=== PATIENT | male | born 1960 | race African-American/Black ===

== ENCOUNTER 2024-07-15 10:47 | Emergency (ER) | payer MEDICAID, SELFPAY ==
[2024-07-15 11:10] VITALS: BP 128/70; PULSE 77; RESP 20; TEMP 36.4; O2SAT 100
[2024-07-15 12:42] VITALS: O2SAT 100
[2024-07-15 12:43] VITALS: BP 106/70; O2SAT 100
[2024-07-15 12:45] VITALS: O2SAT 100
[2024-07-15 12:46] VITALS: BP 108/69; PULSE 82; RESP 20; O2SAT 100
[2024-07-15 13:01] LABS: Basophils Percent Auto 0.3 % (0.2-1.2); Eosinophils Absolute Auto 0.1 K/mm3 (0-0.3); Eosinophils Percent Auto 1.6 % (0-4.4); Hemoglobin 12.7 g/dL (14.0-18.0); Immature Granulocyte Absolute 0.09 K/mm3 (0.00-0.031); Lymphocytes Absolute Auto 2.38 K/mm3 (0.9-3.2); Lymphocytes Percent Auto 26.9 % (18.3-44.2); Mean Corpuscular HGB Conc 31.8 g/dl (32-36); Mean Corpuscular Hemoglobin 24.1 pg (26-34); Mean Platelet Volume 9.8 fl (7.4-10.4); Monocytes Absolute Auto 0.8 K/mm3 (0.1-0.6); Neutrophils Absolute Auto 5.4 K/mm3 (1.3-6.7); Neutrophils Percent Auto 61.2 % (45.5-73.1); Platelet Count Result 189 k/mm3 (150-375); Red Blood Count 5.26 M/mm3 (4.6-6.20); Red Cell Distribution Width 18.2 % (11.5-14.5); White Blood Count 8.9 K/mm3 (4.5-10.0)
[2024-07-15 13:08] LABS: Add Urine Microscopic? YES; Appearance Urine Clear (Clear); Bacteria Urine None Seen /hpf; Bilirubin Urine Negative (Negative); Blood Urine Negative (Negative); Color Urine Yellow (Yellow); Glucose Urine UA 3+ mg/dL (Negative); Ketones Urine Negative (Negative); Leukocyte Esterase Ur Negative LEU/UL (Negative); Nitrate Urine Negative (Negative); Protein Urine 1+ mg/dL (Negative); RBC Urine 0-2 /hpf (0-2); Specific Grav Ur 1.017 (1.001-1.035); Squamous Epithelial Cell Urine None Seen /hpf (Few); Urobilinogen Urine 0.2 mg/dL (<2.0); WBC Urine 0-5 /hpf (0-3); pH Urine 5.5 (5.0-9.0)
[2024-07-15 13:12] LABS: Alanine Aminotransferase 20 U/L (6-50); Albumin Level 4.3 g/dL (3.5-5.1); Alkaline Phosphatase 84 U/L (38-126); Anion Gap 13 mmol/L (4-12); Aspartate Amino Transferase 25 U/L (17-59); Bilirubin,Total 1.3 mg/dL (0.2-1.3); Blood Urea Nitrogen 29 mg/dL (9-20); Calcium 9.2 mg/dL (8.4-10.2); Carbon Dioxide 19 mmol/L (22-30); Chloride 107 mmol/L (98-107); Estimated CRCL calculation 44 ml/min; Estimated Glomerular Filt Rate 34; Glucose 103 mg/dL (65-110); Potassium 3.5 mmol/L (3.4-5.0); Sodium 139 mmol/L (137-145)
--- NOTE | 2024-07-15 13:25 | ED.MALEGU ---
HPI - Male Genitourinary General Chief complaint: Urogenital-Male Stated complaint: groin pain Time Seen by Provider: 07/15/24 12:46 History of Present Illness HPI Narrative: Patient is a 63-year-old male who presents ER with suprapubic pain. Has not been able to fully urinate. He keeps going to the bathroom and only is able to really small amounts of urine. No dysuria. Has a known enlarged prostate. He does take Flomax. Recently traveled here from [place] to [place] his [place]. He is going to be returning home in 3 days. No fevers or chills or sweats. No dysuria. Related Data Allergies Allergy/AdvReac Type Severity Reaction Status Date / Time No Known Allergies Allergy Verified 07/15/24 11:13 Review of Systems Review of Systems: All systems reviewed & are unremarkable except as noted in HPI and below Constitutional: Constitutional: Reports no additional constitutional complaints Gastrointestinal: Gastrointestinal: Reports abdominal pain, Denies nausea and Denies vomiting Genitourinary: Genitourinary: Denies hematuria, Reports oliguria, Denies dysuria and Denies urinary frequency [facility] Past Medical History Medical History (Updated 07/15/24 @ 14:39 by Macho Larsen MD) BPH (benign prostatic hyperplasia) Chronic kidney disease Exam Narrative: GENERAL: Well-appearing, well-nourished, and in no acute distress. HEAD: Normocephalic, atraumatic. ENT: Mucous membranes moist. CHEST: Clear to auscultation. No respiratory distress. HEART: Regular rate and rhythm. Normal peripheral pulses. ABDOMEN: Soft, suprapubic tenderness with palpation, nondistended. EXTREMITIES: Normal range of motion. No edema. SKIN: Warm, dry, no rash. NEURO: Alert and oriented x3. PSYCH: Normal mood and affect. Course Course Emergency Course: Orozco catheter placed with 1200 mL return of urine. No infection. 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 Discharge with Orozco bag. Continue Flomax and follow up with his primary urologist. Vital Signs Vital signs: Vital Signs Temperature 97.6 F 07/15/24 11:10 Pulse Rate 77 07/15/24 11:10 Respiratory Rate 20 07/15/24 11:10 Blood Pressure 128/70 07/15/24 11:10 Pulse Oximetry 100 07/15/24 11:10 Oxygen Delivery Room Air 07/15/24 11:10 Temperature 97.6 F 07/15/24 11:10 Pulse Rate 82 07/15/24 12:46 Respiratory Rate 20 07/15/24 12:46 Blood Pressure 108/69 07/15/24 12:46 Pulse Oximetry 100 07/15/24 12:46 Oxygen Delivery Room Air 07/15/24 11:10 MDM - Male Genitourinary Lab Data 07/15/24 12:45 07/15/24 12:45 Labs: Lab Results 07/15/24 Range/Units 12:45 WBC 8.9 (4.5-10.0) K/mm3 RBC 5.26 (4.6-6.20) M/mm3 Hgb 12.7 L (14.0-18.0) g/dL Hct 40.0 L (42.0-52.0) % MCV 76.0 L (80-100) fl MCH 24.1 L (26-34) pg MCHC 31.8 L (32-36) g/dl RDW 18.2 H (11.5-14.5) % Plt Count 189 (150-375) k/mm3 MPV 9.8 (7.4-10.4) fl Immature Gran % (Auto) 1.0 H (0-0.5) % Neut % (Auto) 61.2 (45.5-73.1) % Lymph % (Auto) 26.9 (18.3-44.2) % [place] % (Auto) 9.0 H (2.6-8.5) % Eos % (Auto) 1.6 (0-4.4) % Baso % (Auto) 0.3 (0.2-1.2) % Lymph # (Auto) 2.38 (0.9-3.2) K/mm3 [place] # (Auto) 0.8 H (0.1-0.6) K/mm3 Eos # (Auto) 0.1 (0-0.3) K/mm3 Baso # (Auto) 0.0 (0.0-0.1) K/mm3 Abs Immat Gran (auto) 0.09 H (0.00-0.031) K/mm3 Absolute Neuts (auto) 5.4 (1.3-6.7) K/mm3 Absolute Nucleated RBC 0.000 (0.0-0.012) K/mm3 Nucleated RBC % 0.0 (0.0-0.2) % Sodium 139 (137-145) mmol/L Potassium 3.5 (3.4-5.0) mmol/L Chloride 107 (98-107) mmol/L Carbon Dioxide 19 L (22-30) mmol/L Anion Gap 13 H (4-12) mmol/L BUN 29 H (9-20) mg/dL Creatinine 2.00 H (0.7-1.3) mg/dL Estim Creat Clear Calc 44 ml/min Estimated GFR 34 L (59 - ) Glucose 103 (65-110) mg/dL Calcium 9.2 (8.4-10.2) mg/dL Total Bilirubin 1.3 (0.2-1.3) mg/dL AST 25 (
[2024-07-15 15:00] VITALS: BP 136/74; PULSE 80; RESP 22; TEMP 36.6; O2SAT 100
== END 2024-07-15 15:02 | disposition home or self-care (01) ==
PROVIDERS: Emergency Provider Emergency Medicine
DX: N40.1 Benign prostatic hyperplasia with lower urinary tract symptoms (principal); R33.8 Other retention of urine; N18.9 Chronic kidney disease, unspecified
CPT/HCPCS: 36415; 51702; 80053; 81001; 85025; 99283